=== PATIENT | male | born 1975 | race Caucasian/White ===

== ENCOUNTER → 2016-12-30 | Day surgery (SDC) | payer OTHER ==
[~2016-12-30] VITALS: Ht 188 cm; Wt 95.9 kg
[~2016-12-30] MED LIST: ADVIL200 MG PO; PRILOSEC20 MG PO
== END | disposition disaster alternative care site (69) ==
LOC: GPOC 12-16 13:00 → GSDC 12:16
PROC: 009U3ZX Drainage of Spinal Canal, Percutaneous Approach, Diagnostic (ICD-10-PCS; principal; 2016-12-30)
DX: R51 Headache (principal); H49.21 Sixth [abducent] nerve palsy, right eye; G51.0 Bell's palsy